=== PATIENT | male | born 1945 | race Caucasian/White ===

== ENCOUNTER 2018-10-09 20:48 | Inpatient (IN) | payer MEDICARE ==
[~2018-10-09] VITALS: Ht 182.9 cm; Wt 81.2 kg
[2018-10-09 20:58] VITALS: BP 151/98
--- NOTE | 2018-10-09 20:58 | NUR ---
Patient BIBA BLS, transferred to bed 8. RN evaluating patient at bedside.
--- NOTE | 2018-10-09 21:01 | NUR ---
PT AMBULATED TO BED #8
--- NOTE | 2018-10-09 21:05 | NUR ---
73 YO MALE BIBA WITH C/O MID UPPER BACK PAIN X1 DAY. PT STATES IT IS SHARP IN NATURE. PT DENIES CP/SOB @ THIS TIME. DENIES FEVER CHILLS. DENIES N/V/D. PT AAOX4, SITTING UP IN GURNEY. LUNGS CLEAR EVEN UNLABORED @ THIS TIME. IRREGULAR HEART RATE. ABD SOFT NON DISTENDED. SKIN WARM DRY INTACT. ER MD TO SEE PT. MEDICAL HX: 2 -2017. DM 1, A FIB, HTN, CHF ALLERGIES TO NSAIDS
[2018-10-09] MEDS ORDERED: MORPHINE SULFATE 4 MG/ML SYR IVP ONE ×2 (21:40→22:55)
[2018-10-09] MEDS ORDERED: NACL 0.9% 500 ML IV ONE (21:45)
[2018-10-09 22:01] LABS: BASOPHILS # (AUTO) 0.1 K/uL (0.00-0.22); BASOPHILS % (AUTO) 1.7 % (0.0-2.0); EOSINOPHILS # (AUTO) 0.5 K/uL (0-0.4); EOSINOPHILS % (AUTO) 11.5 % (0.0-4.0); HEMATOCRIT 40.5 % (36-52); HEMOGLOBIN 13.4 g/dL (12.0-18.0); LYMPHOCYTES # (AUTO) 1.1 K/uL (2.0-11.5); MEAN CORPUSCULAR HEMOGLOBIN 29 pg (27-31); MEAN CORPUSCULAR HGB CONC 33 g/dL (33-37); MEAN CORPUSCULAR VOLUME 87.9 fL (80-94); MONOCYTES # (AUTO) 0.5 K/uL (0.8-1.0); NEUTROPHILS % (AUTO) 47.8 % (42.2-75.2); PLATELET COUNT (AUTO) 206 K/uL (140-450); RED CELL DISTRIBUTION WIDTH 15.4 % (11.6-13.7); WHITE BLOOD COUNT (AUTO) 4.2 K/uL (4.8-10.8)
[2018-10-09 23:03] LABS: ANION GAP 13.6 (8-16); CARBON DIOXIDE 25.3 mmol/L (21-32); CHLORIDE 102 mmol/L (98-107); CREATININE 2.1 mg/dL (0.7-1.3); GLUCOSE 256 mg/dL (74-106); POTASSIUM 3.9 mmol/L (3.5-5.1); SODIUM SERUM 137 mmol/L (136-145); UREA NITROGEN, BLOOD 37 mg/dL (7-18)
[2018-10-09] MEDS ORDERED: MORPHINE SULFATE 2 MG/ML SYR ONE (23:08)
[2018-10-09 23:11] LABS: ASPARTATE AMINOTRANSFERASE 18 U/L (15-37); TOTAL BILIRUBIN 0.4 mg/dL (0.0-1.0)
--- NOTE | 2018-10-09 23:27 | NUR ---
SPOKE WITH [facility] WITH [facility] FOR VQ SCAN; STATED MEDS TAKE X3 HOURS TO GET TO [facility]. UPDATED DR SULLIVAN. PT TO BE ADMITTED IN HOSPITAL. VERBALIZED UNDERSTANDING.
--- NOTE | 2018-10-10 | NUR ---
PT DENIES CP/SOB @ THIS TIME. VSS. WILL CONTINUE TO OBSERVE.
[2018-10-10] MEDS ORDERED: ACETAMINOPHEN 325 MG TAB PO PRN (00:10)
[2018-10-10] MEDS ORDERED: HYDROcodone/APAP 7.5/325 MG 1 TAB PO PRN (00:10)
[2018-10-10] MEDS ORDERED: NACL 0.9% 1,000 ML IV SCH (00:10)
[2018-10-10] MEDS ORDERED: DOCUSATE SODIUM 100 MG GELCAP PO PRN (00:10)
[2018-10-10] MEDS ORDERED: ONDANSETRON 4 MG/2 ML VIAL IM/IVP PRN (00:10)
[2018-10-10] MEDS ORDERED: MORPHINE SULFATE 2 MG/ML SYR IVP PRN (00:10)
[2018-10-10 00:35] LABS: PROTHROMBIN TIME 10.7 secs (10.8-13.4)
[2018-10-10 00:46] LABS: MAGNESIUM 1.8 mg/dL (1.8-2.4)
[2018-10-10 00:47] LABS: THYROID STIMULATING HORMONE 4.16 uIU/mL (0.34-3.74)
[2018-10-10] MEDS ORDERED: SLIDE SUBQ (00:54)
[2018-10-10] MEDS ORDERED: FURO-572 PO (00:54)
[2018-10-10] MEDS ORDERED: LEVO0.0211 PO (00:54)
[2018-10-10] MEDS ORDERED: ASPI-1718 PO (00:54)
[2018-10-10] MEDS ORDERED: LISI-420 PO (00:54)
[2018-10-10] MEDS ORDERED: ATOR10TA51 PO (00:54)
[2018-10-10] MEDS ORDERED: APIX5TAB PO (00:54)
[2018-10-10] MEDS ORDERED: LANTUS SC (00:54)
[2018-10-10] MEDS ORDERED: DEXTROSE 50% 50 ML SYR IVP PRN (01:00)
[2018-10-10] MEDS ORDERED: INSULIN LISPRO SLIDING SCALE 100 UNITS/ML VIAL SUBQ PRN (01:00)
--- NOTE | 2018-10-10 01:30 | NUR ---
Patient will be admitted to care of DR. BERGMAN. Admited to TELEMETRY. Will go to [id number]. Belongings list completed. Report to JEFF BRAY.
--- NOTE | 2018-10-10 01:33 | NUR ---
PATIENT TRANSFERRED INTO UNIT VIA WHEELCHAIR, ASSISTED BY TWO STOKER MECHANIC'S. PATIENT ABLE TO TRANSFER FROM WHEELCHAIR TO BED WITHOUT ASSISTANCE. PATIENT A/Ox4, ABLE TO MAKE NEEDS KNOWN, AMBULATORY AND KYRGYZ SPEAKING. INTRODUCED SELF, ORIENTED PATIENT TO ROOM AND HOSPITAL ENVIRONMENT, UPDATED BOARD. CHIEF COMPLAINT OF BACK PAIN. DX - CHEST PAIN, RULE OUT PULMONARY EDEMA. HX OF WI x 2, HTN, DM. VITAL SIGNS UPON ADMISSION ARE FOLLOWS: BP 155/92, RR 15, HR 78, TEMP 97.0 DEGREES F., O2Sat 98% ON ROOM AIR. SKIN INTACT. BED IN THE LOWEST POSITION, CALL LIGHT WITHIN REACH. INITIAL ASSESSMENT DONE. WILL CONTINUE TO MONITOR.
[2018-10-10 01:39] LABS: APPEARANCE,URINE CLEAR (CLEAR); BILIRUBIN,URINE NEGATIVE (NEGATIVE); BLOOD, URINE TRACE-I (NEGATIVE); COLOR,URINE YELLOW (YELLOW); LEUKOCYTE ESTERASE ,URINE NEGATIVE (NEGATIVE); NITRITE, URINE NEGATIVE (NEGATIVE); UGLUCOSE 2+ (NEGATIVE)
[2018-10-10 01:48] LABS: BARBITURATE, URINE NEG. ng/ml (NEG <=200); BENZODIAZEPINE, URINE NEG. ng/mL (NEG <=200); CANNABINOID, URINE NEG. ng/mL (NEG <=50); COCAINE, URINE NEG. ng/mL (NEG <=300); OPIATE, URINE NEG. ng/mL (NEG <=2000); PHENCYCLIDINE SCREEN,URINE NEG. ng/mL (NEG <=25)
[2018-10-10 01:51] LABS: RBC,URINE 0-5 /HPF (0-5); WBC,URINE NONE SEEN /HPF (0-5)
--- NOTE | 2018-10-10 02:50 | NUR ---
MADE DR. PAULSON AWARE OF TROPONIN LEVEL 0.481 DURING ER STAY; NO NEW ORDERS.
[2018-10-10 04:00] VITALS: BP 158/82
--- NOTE | 2018-10-10 04:03 | NUR ---
VITALS TAKEN, NO SOB OR DISTRESS NOTED.
--- NOTE | 2018-10-10 05:30 | NUR ---
DUE MEDS GIVEN, PATIENT IS AWAKE, NO DISTRESS NOTED.
[2018-10-10] MEDS ORDERED: LEVOTHYROXINE 0.025 MG TAB PO SCH (06:30)
[2018-10-10] MEDS: BLOOD GLUCOSE MONITORING 1 DEV DEV FS SCH ×2 (06:39→11:30)
[2018-10-10 07:11] LABS: BASOPHILS # (AUTO) 0.1 K/uL (0.00-0.22); BASOPHILS % (AUTO) 1.5 % (0.0-2.0); EOSINOPHILS # (AUTO) 0.4 K/uL (0-0.4); EOSINOPHILS % (AUTO) 12.1 % (0.0-4.0); HEMATOCRIT 41.5 % (36-52); HEMOGLOBIN 13.7 g/dL (12.0-18.0); LYMPHOCYTES # (AUTO) 1.2 K/uL (2.0-11.5); LYMPHOCYTES % (AUTO) 32.8 % (20.5-51.1); MEAN CORPUSCULAR HEMOGLOBIN 29 pg (27-31); MEAN CORPUSCULAR HGB CONC 33 g/dL (33-37); MEAN CORPUSCULAR VOLUME 88.5 fL (80-94); MONOCYTES # (AUTO) 0.4 K/uL (0.8-1.0); MONOCYTES % (AUTO) 10.5 % (1.7-9.3); NEUTROPHILS # (AUTO) 1.5 K/uL (1.8-7.7); NEUTROPHILS % (AUTO) 43.1 % (42.2-75.2); PLATELET COUNT (AUTO) 194 K/uL (140-450); RED BLOOD CELL COUNT(AUTO) 4.69 MIL/uL (4.20-6.10); RED CELL DISTRIBUTION WIDTH 15.8 % (11.6-13.7); WHITE BLOOD COUNT (AUTO) 3.6 K/uL (4.8-10.8)
--- NOTE | 2018-10-10 07:15 | NUR ---
ENDORSED PATIENT TO AM SHIFT RN; PATIENT IN STABLE CONDITION.
--- NOTE | 2018-10-10 07:35 | NUR ---
RECEIVED REPORT FROM CABIN SUPERVISOR NURSE. PATIENT LYING DOWN IN BED SLEEPING, AROUSABLE BY VOICE. NO DISTRESS NOTED. DENIES ANY PAIN. AAOX4, CALM, COOPERATIVE, SKIN COLOR APPROPRIATE TO ETHNICITY, WARM TO TOUCH. SKIN INTACT. RESPIRATIONS EVEN, UNLABORED, ON ROOM AIR. LUNGS CTA ON ALL LOBES. IV SITE INTACT, PATENT, AND INFUSING IVF PER MD ORDERS. REVIEWED PLAN OF CARE WITH PATIENT. PATIENT VERBALIZED UNDERSTANDING. SAFETY MEASURES IN PLACE, CALL LIGHT WITHIN REACH. WILL CONTINUE TO MONITOR.
[2018-10-10 07:40] LABS: ANION GAP 9.6 (8-16); CARBON DIOXIDE 30.1 mmol/L (21-32); CHLORIDE 108 mmol/L (98-107); CREATININE 1.9 mg/dL (0.7-1.3); GLUCOSE 149 mg/dL (74-106); POTASSIUM 4.7 mmol/L (3.5-5.1); SODIUM SERUM 143 mmol/L (136-145); UREA NITROGEN, BLOOD 30 mg/dL (7-18)
[2018-10-10 07:48] LABS: MAGNESIUM 1.9 mg/dL (1.8-2.4); PHOSPHORUS 3.3 mg/dL (2.5-4.9)
--- NOTE | 2018-10-10 07:55 | NUR ---
PATIENT HAS BEEN SCREENED AND CATEGORIZED MODERATE NUTRITION RISK. PATIENT WILL BE SEEN WITHIN 3-5 DAYS OF ADMISSION. 10/12/18-10/14/[address]
[2018-10-10 08:00] VITALS: BP 170/86
[2018-10-10] MEDS ORDERED: APIXABAN 2.5 MG TAB PO SCH (09:00)
[2018-10-10] MEDS ORDERED: ASPIRIN 81 MG TAB.CHEW PO SCH (09:00)
[2018-10-10] MEDS ORDERED: FUROSEMIDE 20 MG TAB PO SCH (09:00)
[2018-10-10] MEDS ORDERED: LISINOPRIL 20 MG TAB PO SCH (09:00)
[2018-10-10] MEDS ORDERED: ATORVASTATIN 20 MG TAB PO SCH (09:00)
--- NOTE | 2018-10-10 09:16 | NUR ---
PATIENT SITTING IN BED ON HIS PHONE. NO DISTRESS NOTED. DENIES ANY PAIN. SCHEDULED MEDICATIONS DUE GIVEN. WILL CONTINUE TO MONITOR.
[2018-10-10 12:00] VITALS: BP 160/91
[2018-10-10] MEDS ORDERED: METOPROLOL SUCCINATE 50 MG TABER PO SCH (12:30)
--- NOTE | 2018-10-10 12:46 | NUR ---
PATIENT SITTING IN BED WITH LUNCH TRAY IN FRONT. NO DISTRESS NOTED. DENIES ANY PAIN. SCHEDULED MEDICATIONS DUE GIVEN. WILL CONTINUE TO MONITOR.
--- NOTE | 2018-10-10 13:23 | NUR ---
DISCHARGE INSTRUCTIONS PROVIDED TO PATIENT IN PREFERRED LANGUAGE OF PANAMANIAN. INSTRUCTIONS ON FOLLOW-UP VISIT WITH PCP AND COMPUTER SYSTEMS TECHNICIAN, DIET REGIMEN, MEDICATION REGIMEN AND SIDE EFFECTS, AND MANAGEMENT OF CHEST PAIN PROVIDED TO PATIENT. ANSWERED ALL OF PATIENT'S QUESTIONS REGARDING DISCHARGE. PATIENT VERBALIZED COMPLETE UNDERSTANDING. AWAITING FOR PATIENT'S SON TO TAKE PATIENT HOME. WILL CONTINUE TO MONITOR.
--- NOTE | 2018-10-10 13:30 | NUR ---
SON WAITING IN FRONT LOBBY FOR PATIENT. IV SITE REMOVED WITH MINIMAL BLOOD AND LUMEN COMPLETELY INTACT. ID BANDS REMOVED. ESCORTED PATIENT DOWN TO LOBBY VIA STEADY AMBULATION. PATIENT DISCHARGED AT THIS TIME IN STABLE CONDITION.
[2018-10-10] MEDS ORDERED: INSULIN LANTUS 100 UNITS/ML 10 ML VIAL SUBQ SCH (21:00)
[2018-10-11] MEDS ORDERED: METOPROLOL SUCCINATE 50 MG TABER PO SCH (09:00)
== END 2018-10-10 13:30 | disposition home or self-care (01) | DRG 280 ==
LOC: MED 20:48 → MTU 10-10 00:10
PROVIDERS: ADMIT Family Medicine; ATTEND Family Medicine
DX: I21.A1 Myocardial infarction type 2 (principal); I50.43 Acute on chronic combined systolic (congestive) and diastolic (congestive) heart failure; N17.0 Acute kidney failure with tubular necrosis; E44.0 Moderate protein-calorie malnutrition; I25.10 Atherosclerotic heart disease of native coronary artery without angina pectoris; E03.9 Hypothyroidism, unspecified; E11.65 Type 2 diabetes mellitus with hyperglycemia; I48.91 Unspecified atrial fibrillation; Z88.6 Allergy status to analgesic agent; Z95.5 Presence of coronary angioplasty implant and graft; Z82.49 Family history of ischemic heart disease and other diseases of the circulatory system; Z68.24 Body mass index [BMI] 24.0-24.9, adult; Z79.84 Long term (current) use of oral hypoglycemic drugs
CPT/HCPCS: 36415; 71045; 78582; 80048; 80053; 80305; 81001; 82150; 82948; 83036; 83690; 83735; 83880; 84100; 84443; 84484; 85025; 85379; 85610; 85730; 87081; 93005; 96374; 96376; 99285; J1815; J2270; J7030

== ENCOUNTER 2019-07-11 13:22 | Inpatient (IN) | payer MEDICARE ==
[~2019-07-11] VITALS: Ht 172.7 cm; Wt 63.5 kg
[~2019-07-11 13:22] MED LIST: APIX5TAB PO; ASPI-1718 PO; ATOR10TA51 PO; FURO-572 PO; LANTUS SC; LEVO0.0211 PO; LISI-420 PO; SLIDE SUBQ
--- NOTE | 2019-07-11 13:22 | NUR ---
Patient BIBA ALS, transferred to bed 10. RN evaluating patient at bedside.
[2019-07-11 13:24] VITALS: BP 145/71
--- NOTE | 2019-07-11 13:35 | NUR ---
74 YEAR OLD MALE BIBA FOR LOW BLOOD SUGAR. PER EMS PATIENT BLOOD SUGAR WAS 33 BEFORE GIVING D5W PRIOR TO ARRIVAL. PATIENT AOX4, GCS15, BREATHING EVEN AND UNLABORED, SKIN WARM AND DRY. SKIN LACERATION ON RIGHT HAND PRESENT, COVERED WITH BANDAGE. BLOOD SUGAR 128. HX - CVA, HTN, DM2, CHF
--- NOTE | 2019-07-11 13:52 | NUR ---
wafer fabrication technician at bedside.
--- NOTE | 2019-07-11 14:15 | NUR ---
PT UNABLE TO COLLECT URINE SAMPLE AT THIS TIME, WILL ATTEMPT AGAIN LATER
--- NOTE | 2019-07-11 14:22 | NUR ---
PATIENT ALERT AND ORIENTED, BREATHING EVEN AND UNLABORED. SKIN WARM AND DRY. WILL CONTINUE TO MONITOR.
--- NOTE | 2019-07-11 14:31 | NUR ---
PT IS UNSURE OF DOSAGE FOR WARFARIN AND CARVEDILOL
[2019-07-11 14:33] LABS: BASOPHILS % (AUTO) 0.4 % (0.0-2.0); EOSINOPHILS # (AUTO) 0.1 K/uL (0-0.4); EOSINOPHILS % (AUTO) 1.3 % (0.0-4.0); HEMATOCRIT 38.1 % (36-52); HEMOGLOBIN 12.3 g/dL (12.0-18.0); LYMPHOCYTES # (AUTO) 0.7 K/uL (2.0-11.5); LYMPHOCYTES % (AUTO) 8.3 % (20.5-51.1); MEAN CORPUSCULAR HEMOGLOBIN 29 pg (27-31); MEAN CORPUSCULAR HGB CONC 32 g/dL (33-37); MEAN CORPUSCULAR VOLUME 88.2 fL (80-94); MONOCYTES # (AUTO) 0.5 K/uL (0.8-1.0); MONOCYTES % (AUTO) 6.8 % (1.7-9.3); NEUTROPHILS # (AUTO) 6.5 K/uL (1.8-7.7); NEUTROPHILS % (AUTO) 83.2 % (42.2-75.2); PLATELET COUNT (AUTO) 371 K/uL (140-450); RED BLOOD CELL COUNT(AUTO) 4.32 MIL/uL (4.20-6.10); RED CELL DISTRIBUTION WIDTH 15.6 % (11.6-13.7); WHITE BLOOD COUNT (AUTO) 7.9 K/uL (4.8-10.8)
[2019-07-11 14:42] LABS: ANION GAP 16.1 (8-16); CARBON DIOXIDE 24.4 mmol/L (21-32); CHLORIDE 100 mmol/L (98-107); CREATININE 2.7 mg/dL (0.7-1.3); GLUCOSE 129 mg/dL (74-106); POTASSIUM 3.5 mmol/L (3.5-5.1); SODIUM SERUM 137 mmol/L (136-145); UREA NITROGEN, BLOOD 44 mg/dL (7-18)
[2019-07-11 14:48] LABS: ALBUMIN 3.2 g/dL (3.4-5.0); AMYLASE 28 U/L (25-115); ASPARTATE AMINOTRANSFERASE 17 U/L (15-37); LIPASE 119 U/L (73-393); MAGNESIUM 2.3 mg/dL (1.8-2.4); TOTAL BILIRUBIN 0.7 mg/dL (0.0-1.0)
--- NOTE | 2019-07-11 15:30 | NUR ---
PATIENT UNABLE TO URINATE, WILL CONTINUE TO MONITOR.
--- NOTE | 2019-07-11 16:00 | NUR ---
PATIENT UNABLE TO URINATE, DR AYON NOTIFIED
--- NOTE | 2019-07-11 16:13 | NUR ---
PATIENT RESTING WITH EYES CLOSED, BREATHING EVEN AND NONLABORED
[2019-07-11] MEDS ORDERED: ALBUTEROL 0.083% 2.5 MG/3 ML NEBU INH PRN (16:40)
[2019-07-11] MEDS ORDERED: ACETAMINOPHEN 325 MG TAB PO PRN (16:40)
[2019-07-11] MEDS ORDERED: DEXTROSE 50% 50 ML SYR IVP PRN (16:40)
[2019-07-11] MEDS ORDERED: ONDANSETRON 4 MG/2 ML VIAL IVP PRN (16:40)
[2019-07-11] MEDS ORDERED: HYDROcodone/APAP 5/325 MG 1 TAB TAB PO PRN (16:40)
--- NOTE | 2019-07-11 17:30 | NUR ---
PATIENT ARRIVED ONTO THE UNIT IN STABLE CONDITION. VITAL SIGNS: 139/77, 95% O2, 18 RR, 98.1 (TYMP), 0 PAIN, [address] PATIENT IS WITH DR. JONES, ORIENTED TO THE UNIT, MRSA NARES DONE. IV LINE CHECKED AND SALINE LOCKED. BODY CHECK COMPLETED, MULTIPLE CLOSED WOUNDS RESEMBLING BRUISES. ADMISSION DOCUMENTATION TO BE COMPLETED. WILL CONTINUE TO MONITOR.
--- NOTE | 2019-07-11 17:30 | NUR ---
Patient will be admitted to care of DR JONES. Admited to TELE. Will go to room 124B. Belongings list completed. Report to ARSEN BRAY.
--- NOTE | 2019-07-11 19:07 | NUR ---
REPORT RECEIVED FROM AM NURSE AT BEDSIDE. PT IN STABLE CONDITION. AAOX4. INTRODUCED SELF TO PT. BOARD UPDATED. NO COMPLAINTS OF PAIN. NO SOB. AFEBRILE. PT IS AMBULATORY WITH A WALKER. IV SITE R AC 20G RUNNING D5NS@75ML/HR PATENT AND INTACT. SKIN WARM, DRY, AND NOT INTACT DUE TO SKIN TEARS ON THE RIGHT HAND. BED LOCKED IN LOW POSITION. CALL YEAGER WITHIN REACH. SAFETY PRECAUTION IN PLACE. ALL NEEDS MET AT THIS TIME.
[2019-07-11 20:00] VITALS: BP 128/68
[2019-07-11] MEDS ORDERED: FUROSEMIDE 20 MG TAB PO SCH (20:30)
--- NOTE | 2019-07-11 20:30 | NUR ---
CRITICAL VALUE CALLED IN TROPONIN 0.148. TRENDING DOWN. NOT NOTIFIED.
[2019-07-11] MEDS: APIXABAN 2.5 MG TAB PO SCH (21:15)
--- NOTE | 2019-07-11 21:15 | NUR ---
LASIX AND ELIQUIS GIVEN PO. PT TOLERATED WELL.
[2019-07-11] MEDS: DEXT 5% /NACL 0.9% 1,000 ML IV SCH (21:30)
[2019-07-11] MEDS: BLOOD GLUCOSE MONITORING 1 DEV DEV FS SCH (21:56)
[2019-07-11] MEDS: INSULIN LISPRO SLIDING SCALE 100 UNITS/ML VIAL SUBQ PRN (21:59)
[2019-07-11] MEDS: MORPHINE SULFATE 4 MG/ML SYR IVP PRN (21:59)
--- NOTE | 2019-07-11 21:59 | NUR ---
MORPHINE GIVEN FOR 8/10 SACRAL PAIN. BS 299. 6 UNITS OF HUMALOG GIVEN. PT TOLERATED WELL.
--- NOTE | 2019-07-11 23:45 | NUR ---
PT SLEEPING COMFORTABLY BUT AROUSABLE. NO S/S OF DISTRESS NOTED. VS STABLE. WILL CONTINUE TO MONITOR.
[2019-07-12] VITALS: BP 116/76
--- NOTE | 2019-07-12 01:05 | NUR ---
CRITICAL VALUE CALLED IN BY LAB TROPONIN 0.125. TRENDING DOWN. NOT NOTIFIED.
[2019-07-12] MEDS: MORPHINE SULFATE 4 MG/ML SYR IVP PRN ×2 (01:55→05:42)
--- NOTE | 2019-07-12 01:55 | NUR ---
DILAUDID GIVEN FOR 02/27 TAILBONE PAIN. PT TOLERATED WELL. Addendum: 07/12/19 at 0632 by Melo Peterson RN MORPHINE WAS GIVEN. NOT DILAUDID.
[2019-07-12 04:00] VITALS: BP 121/67
--- NOTE | 2019-07-12 04:15 | NUR ---
PT SLEEPING COMFORTABLY BUT AROUSABLE. NO S/S OF DISTRESS NOTED. NO COMPLAINTS OF PAIN. NO SOB. AFEBRILE. WILL CONTINUE TO MONITOR.
[2019-07-12] MEDS: BLOOD GLUCOSE MONITORING 1 DEV DEV FS SCH ×4 (05:22→20:33)
[2019-07-12] MEDS: INSULIN LISPRO SLIDING SCALE 100 UNITS/ML VIAL SUBQ PRN ×4 (05:36→20:40)
--- NOTE | 2019-07-12 05:36 | NUR ---
BS 233. 4 UNITS OF HUMALOG GIVEN. PT TOLERATED WELL.
--- NOTE | 2019-07-12 05:42 | NUR ---
MORPHINE GIVEN FOR 8/10 TAILBONE PAIN. PT TOLERATED WELL.
[2019-07-12 06:31] LABS: ANION GAP 15.9 (8-16); CARBON DIOXIDE 23.1 mmol/L (21-32); CHLORIDE 102 mmol/L (98-107); CREATININE 2.5 mg/dL (0.7-1.3); GLUCOSE 242 mg/dL (74-106); SODIUM SERUM 137 mmol/L (136-145); UREA NITROGEN, BLOOD 40 mg/dL (7-18)
[2019-07-12 06:42] LABS: PHOSPHORUS 3.5 mg/dL (2.5-4.9)
[2019-07-12 06:56] LABS: BASOPHILS % (AUTO) 0.5 % (0.0-2.0); EOSINOPHILS # (AUTO) 0.1 K/uL (0-0.4); EOSINOPHILS % (AUTO) 0.9 % (0.0-4.0); HEMATOCRIT 32.9 % (36-52); HEMOGLOBIN 10.8 g/dL (12.0-18.0); LYMPHOCYTES % (AUTO) 11.4 % (20.5-51.1); MEAN CORPUSCULAR HEMOGLOBIN 29 pg (27-31); MEAN CORPUSCULAR HGB CONC 33 g/dL (33-37); MEAN CORPUSCULAR VOLUME 87.7 fL (80-94); MONOCYTES # (AUTO) 0.9 K/uL (0.8-1.0); MONOCYTES % (AUTO) 10.6 % (1.7-9.3); NEUTROPHILS # (AUTO) 6.6 K/uL (1.8-7.7); NEUTROPHILS % (AUTO) 76.6 % (42.2-75.2); PLATELET COUNT (AUTO) 325 K/uL (140-450); RED BLOOD CELL COUNT(AUTO) 3.75 MIL/uL (4.20-6.10); RED CELL DISTRIBUTION WIDTH 15.3 % (11.6-13.7); WHITE BLOOD COUNT (AUTO) 8.6 K/uL (4.8-10.8)
--- NOTE | 2019-07-12 06:58 | NUR ---
PT SLEEPING COMFORTABLY BUT AROUSABLE. PT IN STABLE CONDITION.
[2019-07-12 07:00] VITALS: BP 141/76
--- NOTE | 2019-07-12 07:20 | NUR ---
CRITICAL LAB VALUE CALLED IN FOR TROPONIN OF 0.136. WILL ENDORSE TO MORNING NURSE TO NOTIFY MD.
--- NOTE | 2019-07-12 07:22 | NUR ---
WAS GIVEN BEDSIDE REPORT FROM DATA ENTRY PROCESSOR NURSE. PATIENT WAS RESTING IN BED. PATIENT IS AAOX4. BREATHING IS EVEN AND UNLABORED ON RA. NO SIGNS OF DISTRESS NOTED. IV ON RIGHT AC 18G INFUSING D5NS AT 75 ML/HR. IT IS CLEAN AND INTACT. SKIN IS WARM TO TOUCH, WITH A SKIN TEAR ON HIS RIGHT WRIST, OPEN TO AIR. SKIN IS APPROPRIATE COLOR FOR ETHNICITY. PATIENT IS CONTINENT AND ABLE TO USE URINAL AND URINAL IS BY BEDSIDE. SAFETY MEASURES ASSESSED, BED IS IN LOW POSITION, CALL LIGHT IS WITHIN REACH. PT EDUCATED TO USE CALL LIGHT FOR ASSISTANCE AND VERBALIZED UNDERSTANDING.
--- NOTE | 2019-07-12 08:34 | NUR ---
PATIENT HAS BEEN SCREENED AND CATEGORIZED MODERATE NUTRITION RISK. PATIENT WILL BE SEEN WITHIN 3-5 DAYS OF ADMISSION. 07/14/19 07/16/[address]
--- NOTE | 2019-07-12 09:30 | NUR ---
PT'S SON IS BY BEDSIDE. BROUGHT IN HOME MED ILIN AND SEND TO PHARMACY. PT IS TALKING TO SON BY BEDSIDE. NO SIGNS OF DISTRESS NOTED. TELE MONITOR ATTACHED. BED SAFETY MEASURES IN PLACE.
[2019-07-12] MEDS: LEVOTHYROXINE 0.025 MG TAB PO SCH (09:58)
[2019-07-12] MEDS: FUROSEMIDE 20 MG TAB PO SCH (09:58)
[2019-07-12] MEDS: APIXABAN 2.5 MG TAB PO SCH (09:59)
[2019-07-12] MEDS: LISINOPRIL 20 MG TAB PO SCH (10:02)
[2019-07-12] MEDS: ATORVASTATIN 20 MG TAB PO SCH (10:02)
--- NOTE | 2019-07-12 10:02 | NUR ---
BP MED GIVEN TO PT. BP WAS CHECKED BEFORE ADMINISTRATION, IT WAS 118/58 WITH A PULSE OF 98. MEDICATIONS WERE ADMINISTERED ORDERED PER MD. MEDICATION EDUCATION GIVEN TO PT AND PT VERBALIZED UNDERSTANDING. PT WAS RESTING IN BED, DENIES PAIN AT THIS TIME WITH NO SIGNS OF DISTRESS NOTED. PT BREATHING IS EVEN AND UNLABORED. SAFETY MEASURES CHECKED, BED IN LOW POSITION AND CALL LIGHT WITHIN REACH. PT INSTRUCTED TO USE CALL LIGHT FOR ASSISTANCE. TELE MONITOR CONNECTED.
[2019-07-12] MEDS: BRILINTA 90 MG PO SCH ×3 (10:21→20:36)
--- NOTE | 2019-07-12 10:21 | NUR ---
ADMINISTERED PT'S HOME MED, UNABLE TO SCAN, AND MANUAL ENTER, MED ED PROVIDED AND PT VERBALIZED UNDERSTANDING. PT TOLERATED MED WELL. SON IS BY BEDSIDE. DENIED PAIN, SOB, NAUSEA AND VOMITING. NO SIGNS OF DISTRESS NOTED. TELE MONITOR ATTACHED. BED IN LOW POSITION AND CALL LIGHT WITHIN REACH.
--- NOTE | 2019-07-12 11:00 | NUR ---
DC PLANNIN YRS OLD WAS ADMITTED FROM HOME WITH A DX OF HYPOGLYCEMIA BS 33 AND NSTEMI. PT HAS A HX OF DM , CAD CARDIAC STENT PLACEMENT 2 WEEKS AGO , CVA WITH RESIDUAL RT SIDED DEFICITS. ADMINISTERED IVF, DEXTROSE INFUSION AND BLOOD SUGAR IMPROVED. CARDIOLOGY CONSULT FOR NSTEMI AND STARTED HEPARIN DRIP ,NEPHROLOGY CONSULT FOR RENAL FUNCTION AND CONTINUE SUPPORTIVE CARE AND PT EVALUATION . CM TO FOLLOW Addendum: 07/13/19 at 1351 by Iliana Glover CM DC PLANNING: PT IS STILL ON HEPARIN DRIP, WAITING FOR CARDIOLOGY CONSULT ,PT EVALUATION DONE DC PLAN TO GO HOME WITH HOME HEALTH FOR PT ,FAXED THE REQUEST TO THE [facility] [phone] CM TO FOLLOW
--- NOTE | 2019-07-12 11:17 | NUR ---
PT AWAKE AND TALKING TO SON BY BEDSIDE. PT REMOVED THE CONDOM CATHETHER AND USED THE URANAL INSTEAD. PT STATED "I DONT WANT IT ON ME, IT'S NOT COMFORTABLE. I CAN USE THIS." HE IS POINTING TO THE URANAL. NO SIGNS OF DISTRESS NOTED. TELE MONITOR ATTACHED. SAFETY MEASURES IN PLACE.
[2019-07-12] MEDS: DEXT 5% /NACL 0.9% 1,000 ML IV SCH (11:32)
--- NOTE | 2019-07-12 11:32 | NUR ---
HUNG A NEW BAG OF IVF AND CONTINUE INFUSING PER MD ORDER. PT AWAKE AND TALKING TO SON BY BEDSIDE. NO SIGNS OF DISTRESS NOTED. SAFETY MEASURES IN PLACE.
[2019-07-12 12:00] VITALS: BP 108/57
--- NOTE | 2019-07-12 12:15 | NUR ---
DR JENKINS IS ASSESSING AND TALKING TO PT AT BEDSIDE. NO SIGNS OF DISTRESS NOTED. TELE MONITOR ATTACHED. SAFETY MEASURES IN PLACE.
--- NOTE | 2019-07-12 12:39 | NUR ---
PT RECEIVED HIS LUNCH TRAY. ADMINISTERED 6 UNITS HUMALOG FOR BLOOD GLUCOSE 294, MED ED PROVIDED TO PT AND PT SAID OK. PT IS STARTING TO EAT HIS LUNCH AT THIS TIME. DENIED PAIN, SOB, DIZZINESS. NO SIGNS OF DISTRESS NOTED. TELE MONITOR ATTACHED. BED IN LOW POSITION AND CALL WITHIN REACH. FALL RISK PROTOCOL IN PLACE AND BED ALARM ACTIVATED. INSTRUCTED PT TO USE THE CALL LIGHT FOR ANY ASSISTANCE AND PT WAS AWARE.
--- NOTE | 2019-07-12 13:38 | NUR ---
PT IS IN ECHOCARDIOGRAM AT THIS TIME. NO SIGNS OF DISTRESS NOTED. TELE MONITOR ATTACHED. BED IN LOW POSITION AND CALL LIGHT WITHIN REACH. FALL RISK PROTOCOL IN PLACE AND BED ALARM ACTIVATED. INSTRUCTED PT TO USE THE CALL LIGHT FOR ANY ASSISTANCE AND PT WAS AWARE.
--- NOTE | 2019-07-12 15:50 | NUR ---
DR JONES IS TALKING AND ASSESSING PT AT BEDSIDE. NO SIGNS OF DISTRESS NOTED. TELE MONITOR ATTACHED. SAFETY MEASURES IN PLACE.
[2019-07-12] MEDS ORDERED: HEPARIN PER PHARMACY MC PRN (15:55)
[2019-07-12 16:00] VITALS: BP 122/69
[2019-07-12] MEDS ORDERED: CLOPIDOGREL 75 MG TAB PO SCH (16:00)
--- NOTE | 2019-07-12 17:45 | NUR ---
REMOTE SENSING TECHNICIAN IS CHANGING AND CLEANING PT AT THIS TIME. PT TOLERATED WELL. NO SIGNS OF DISTRESS NOTED. TELE MONITOR ATTACHED. SAFETY MEASURES IN PLACE.
--- NOTE | 2019-07-12 18:25 | NUR ---
PT RECEIVE HIS DINNER TRAY, ADMINISTERED 6 UNITS HUMALOG FOR BLOOD GLUCOSE 274, MED ED PROVIDED AND PT SAID OK. PT IS EATING DINNER AT THIS TIME. NO SIGNS OF DISTRESS NOTED. SAFETY MEASURES IN PLACE. TELE MONITOR ATTACHED.
--- NOTE | 2019-07-12 19:35 | NUR ---
ENDORSED PT AT BEDSIDE TO CLASS A REGIONAL DRIVERS NURSE FOR CONTINUITY OF CARE, PT IS AWAKE AND RESTING ON BED AT THIS TIME. NO SIGNS OF DISTRESS NOTED. INFORMED CLASS A REGIONAL DRIVERS NURSE THAT HEPARIN MUST START AFTER 2100 AND NOTHING EARLIER THAT THIS TIME TO PREVENT RISK OF BLEEDING. PT IS IN STABLE CONDITION. SAFETY MEASURES IN PLACE.
--- NOTE | 2019-07-12 19:36 | NUR ---
RECEIVED BEDSIDE REPORT FROM AM SHIFT NURSE FOR CONTINUITY OF CARE, PT IS AWAKE, O X 4. PT ABLE TO GO BATHROOM STEADY GAIT. RESTING ON BED AT THIS TIME. NO SIGNS OF DISTRESS NOTED. AWARE THAT HEPARIN MUST START AFTER 2100 AND NOTHING EARLIER THAT THIS TIME TO PREVENT RISK OF BLEEDING. PT IS IN STABLE CONDITION. SAFETY MEASURES IN PLACE.
[2019-07-12 20:00] VITALS: BP 125/61
--- NOTE | 2019-07-12 20:07 | NUR ---
CALLED DR. VILLALOBOS, DIESEL LOCOMOTIVE FIRER FOR NIGHT TIME. MAG LEVEL REPORTED 1.5. SAID TO TAKE CARE OF IT TOMORROW AM. Addendum: 07/12/19 at 2008 by Lydia Ricks RN DELETE NOTE WRONG PATIENT
[2019-07-12] MEDS ORDERED: INSULIN LANTUS 100 UNITS/ML 10 ML VIAL SUBQ SCH (21:00)
[2019-07-12] MEDS ORDERED: COMMUNICATION ORDER MC SCH (21:00)
--- NOTE | 2019-07-12 21:00 | NUR ---
STARTED A LINE ON THE LEFT FOREARM G 24, PATENT. PATIENT TOLERATED PROCEDURE; W/ GOOD BLOOD FLOW WHEN FLUSHED. NO SIGNS OF BLEEDING NO SIGNS OF INFECTION ON SITE
--- NOTE | 2019-07-12 21:43 | NUR ---
BOLUS OF HEPARIN GIVEN INDICATED
--- NOTE | 2019-07-12 21:44 | NUR ---
HEPARIN STARTED INDICATED
[2019-07-12] MEDS: hePARIN / DEXT 5% PREMIX 250 ML IV SCH (21:45)
[2019-07-13] VITALS: BP 126/65
--- NOTE | 2019-07-13 00:15 | NUR ---
PT SAID AFTER VS TAKEN HE WANTS TO NOT TO BE DISTURBED BEC HE LAC SLEEP. WILL REDUCE NOISE IN THE ROOM FOR PT TO SLEEP
--- NOTE | 2019-07-13 01:41 | NUR ---
CHECKED ON PATIENT. PATIENT SLEEPING BUT EASILY AROUSABLE;NO BLEEDING. CHECKED ON DRIP MAINTAINING THE INITIAL DOSE. AWAITING PTT LEVEL LATER AT 0343 FOR THE NEXT HEPARIN PROTOCOL
[2019-07-13 04:01] VITALS: BP 131/78
--- NOTE | 2019-07-13 04:30 | NUR ---
STOPPED HEPARIN DRIP Addendum: 07/13/19 at 0507 by Lydia Ricks RN FOR 1 HOUR THEN RESUME DECREASE 200 U/HR TO PRESENT RATE
[2019-07-13] MEDS: hePARIN / DEXT 5% PREMIX 250 ML IV SCH ×2 (05:36→13:29)
--- NOTE | 2019-07-13 05:36 | NUR ---
ADJUSTED THE DOSE TO 600 UNITS/HR, NEXT PTT DRAW AT 1136 9 6 HRS AFTER THE ADJUSTED TIME
[2019-07-13] MEDS: BLOOD GLUCOSE MONITORING 1 DEV DEV FS SCH ×3 (05:44→16:30)
[2019-07-13 05:45] LABS: BASOPHILS % (AUTO) 0.5 % (0.0-2.0); EOSINOPHILS # (AUTO) 0.2 K/uL (0-0.4); EOSINOPHILS % (AUTO) 1.9 % (0.0-4.0); HEMATOCRIT 32.7 % (36-52); HEMOGLOBIN 10.8 g/dL (12.0-18.0); LYMPHOCYTES # (AUTO) 1.1 K/uL (2.0-11.5); LYMPHOCYTES % (AUTO) 11.3 % (20.5-51.1); MEAN CORPUSCULAR HEMOGLOBIN 29 pg (27-31); MEAN CORPUSCULAR HGB CONC 33 g/dL (33-37); MEAN CORPUSCULAR VOLUME 87.7 fL (80-94); MONOCYTES # (AUTO) 0.9 K/uL (0.8-1.0); MONOCYTES % (AUTO) 10.1 % (1.7-9.3); NEUTROPHILS # (AUTO) 7.1 K/uL (1.8-7.7); NEUTROPHILS % (AUTO) 76.2 % (42.2-75.2); PLATELET COUNT (AUTO) 340 K/uL (140-450); RED BLOOD CELL COUNT(AUTO) 3.72 MIL/uL (4.20-6.10); RED CELL DISTRIBUTION WIDTH 15.2 % (11.6-13.7); WHITE BLOOD COUNT (AUTO) 9.3 K/uL (4.8-10.8)
[2019-07-13 06:00] LABS: MAGNESIUM 1.8 mg/dL (1.8-2.4); PHOSPHORUS 2.9 mg/dL (2.5-4.9)
[2019-07-13 06:03] LABS: ALBUMIN 2.4 g/dL (3.4-5.0); ASPARTATE AMINOTRANSFERASE 13 U/L (15-37); CARBON DIOXIDE 23.5 mmol/L (21-32); CHLORIDE 104 mmol/L (98-107); CREATININE 2.3 mg/dL (0.7-1.3); GLUCOSE 90 mg/dL (74-106); POTASSIUM 3.5 mmol/L (3.5-5.1); SODIUM SERUM 138 mmol/L (136-145); TOTAL BILIRUBIN 0.6 mg/dL (0.0-1.0); UREA NITROGEN, BLOOD 34 mg/dL (7-18)
--- NOTE | 2019-07-13 06:34 | NUR ---
PT ASLEEP EASILY AROUSABLE, NOT IN CARDIAC NOR RESPIRATORY DISTRESS. PT AFIB W/ PVC'S IN THE EKG. FOR MONITORING. DR COLON. WILL ENDORSE TO AM SHIFT
--- NOTE | 2019-07-13 06:50 | NUR ---
GEGE OF LAB CALLED FOR CRITICAL RESULT TROPONIN LEVEL 0.128 TRENDING DOWN. PT HAS ONGOING HEPARIN DRIP
--- NOTE | 2019-07-13 07:20 | NUR ---
RECEIVED BEDSIDE REPORT FROM BI ARCHITECT NURSE FOR CONTINUITY OF CARE. PT AWAKE AND RESTING ON BED AT THIS TIME. PT IS AAOX4. DENIED SOB, NAUSEA, VOMITING AND DIZZINESS AT THIS TIME. RESPIRATION EVEN AND UNLABORED ON RA. NO SIGNS OF DISTRESS NOTED. IV ON LFA 24G, CLEAN AND INTACT, INFUSING HEPARIN AT 600 UNIT/ 6 ML/HR. RAC CLEAN AND DRY, SL PER MD ORDER. SKIN TEAR ON R HAND NOTED AND COVERED WITH VERSATIL, OTHERWISE SKIN CLEAN AND DRY. PT IS CONTINENT AND ABLE TO USE URANAL BY BEDSIDE. PT IS BEDREST AT THIS TIME DUE TO WEAKNESS. DISCUSSED PLAN OF CARE WITH PT AND PT VERBALIZED UNDERSTANDING. SAFETY MEASURES IN PLACE. FALL RISK PROTOCOL IN PLACE AND BED ALARM ACTIVATED. BED IN LOW POSITION AND CALL LIGHT WITHIN REACH. INSTRUCTED PT TO USE THE CALL LIGHT FOR ANY ASSISTANCE AND PT WAS AWARE.
[2019-07-13 08:00] VITALS: BP 136/79
[2019-07-13] MEDS: LEVOTHYROXINE 0.025 MG TAB PO SCH (09:35)
[2019-07-13] MEDS: FUROSEMIDE 20 MG TAB PO SCH (09:35)
[2019-07-13] MEDS: BRILINTA 90 MG PO SCH ×2 (09:36→09:37)
[2019-07-13] MEDS: LISINOPRIL 20 MG TAB PO SCH (09:36)
[2019-07-13] MEDS: ATORVASTATIN 20 MG TAB PO SCH (09:36)
--- NOTE | 2019-07-13 09:37 | NUR ---
CHECKED BP PRIOR TO MED ADMINISTRATION , BP 125/66 PULSE 96. ADMINISTRATED MEDS PER MD ORDER, MED EDUCATION PROVIDED TO PT AND PT VERBALIZED UNDERSTANDING. PT AWAKE AND WATCHING TV AT THIS TIME. DENIED PAIN, SOB, DIZZINESS. NO SIGNS OF DISTRESS NOTED. HEPARIN DRIP CONTINUE INFUSING AT 600 UNIT/ 6ML/HR. TELE MONITOR ATTACHED. SAFETY MEASURES IN PLACE. BED IN LOW POSITION AND CALL LIGHT WITHIN REACH. FALL RISK PROTOCOL IN PLACE AND BED ALARM ACTIVATED. INSTRUCTED PT TO USE THE CALL LIGHT FOR ANY ASSISTANCE AND PT WAS AWARE.
--- NOTE | 2019-07-13 10:45 | NUR ---
RECEIVED A CALL BACK FROM DR BOND. PER DR BOND THAT HE SAW THE PT TODAY AND TYPED IN A REPORT. INFORMED DR THAT NO CONSULTATION NOTE SHOWS ON EMR. PER DR BOND, CONTINUE HEPARIN DRIP UNTIL PT STARTS ELIQUS 5 MG BID AND INCREASE THE DOSE OF LIPITOR FROM 10 MG TO 40 MG. REPEATED AND CONFIRMED ABOVE INFOR WITH DR BOND. WILL INFORM DR JONES WHEN ROUNDS.
--- NOTE | 2019-07-13 11:30 | NUR ---
PT IS IN PHYSICAL SESSION WITH PHYSICAL THERAPIST AT THIS TIME. NO SIGNS OF DISTRESS NOTED. TELE MONITOR ATTACHED.
[2019-07-13 12:00] VITALS: BP 115/80
[2019-07-13] MEDS: INSULIN LISPRO SLIDING SCALE 100 UNITS/ML VIAL SUBQ PRN ×2 (12:16→17:39)
--- NOTE | 2019-07-13 12:17 | NUR ---
PT RECEIVED HIS LUNCH TRAY AND EATING LUNCH AT THIS TIME. ADMINISTERED 4 UNITS OF HUMALOG FOR BLOOD GLUCOSE 211, ENCOURAGED PT TO EAT ADQUATE INTAKE TO PROMOTE ADEQUATE GLUCOSE STABLE AND NUTRITION, PATIENT SAID OK. NO SIGNS OF DISTRESS NOTED. TELE MONITOR ATTACHED. SAFETY MEASURES IN PLACE.
--- NOTE | 2019-07-13 13:04 | NUR ---
CLEANSED SKIN TEAR WITH NS AND APPLIED VERSTEL COVER SKIN TEAR. PT TOLERATED WELL. PT AWAKE AND RESTING ON BED AT THIS TIME. NO SIGNS OF DISTRESS NOTED. TELE MONITOR ATTACHED. SAFETY MEASURES IN PLACE. BED IN LOW POSITION AND CALL LIGHT WITHIN REACH. FALL RISK PROTOCOL IN PLACE AND BED ALARM ACTIVATED.
--- NOTE | 2019-07-13 13:29 | NUR ---
RECEIVED APTT 36, ADJUSTED THE INFUSING RATE PER PROTOCOL TO 700 UNITS /7ML/HR AND ADMINISTERED BOLUS OF 1,900 UNITS/ 0.38 ML/HR. PT IS RESTING ON BED AT THIS TIME. RESPIRATION EVEN AND UNLABORED ON RA. NO SIGNS OF DISTRESS NOTED. TELE MONITOR ATTACHED. SAFETY MEASURES IN PLACE. FALL RISK PROTOCOL IN PLACE AND BED ALARM ACTIVATED. WILL ORDER THE NEXT PTT DRAW AT 1930.
[2019-07-13] MEDS ORDERED: DOCUSATE SODIUM 100 MG GELCAP PO SCH (14:31)
--- NOTE | 2019-07-13 14:35 | NUR ---
ADMINISTERED COLACE PO, MED ED PROVIDED AND PT TOLERATED WELL. PT IS AWAKE AND WATCHING TV ON BED AT THIS TIME. DENIED PAIN, SOB, NAUSEA AND DIZZINESS. NO SIGNS OF DISTRESS NOTED. TELE MONITOR ATTACHED. SAFETY MEASURES IN PLACE. BED IN LOW POSITION AND CALL LIGHT WITHIN REACH. INSTRUCTED PT TO USE THE CALL LIGHT FOR ANY ASSISTANCE AND PT WAS AWARE.
--- NOTE | 2019-07-13 15:19 | NUR ---
PT AWAKE AND LOOKING AT HIS PHONE AT THIS TIME. NO SIGNS OF DISTRESS NOTED. TELE MONITOR ATTACHED. SAFETY MEASURES IN PLACE. BED IN LOW POSITION. CALL LIGHT WITHIN REACH. FALL RISK PROTOCOL IN PLACE AND BED ALARM ACTIVATED.
[2019-07-13] MEDS ORDERED: [UNRECOGNIZED DRUG - OTHER] PO (15:30)
[2019-07-13] MEDS ORDERED: LANTUS SUBQ (15:30)
--- NOTE | 2019-07-13 15:35 | NUR ---
DC HEPARIN DRIP PER MD ORDER.
[2019-07-13] MEDS ORDERED: CARV3.12 PO (15:36)
[2019-07-13 16:00] VITALS: BP 121/68
--- NOTE | 2019-07-13 16:05 | NUR ---
CALLED PT'S SON ORALIA AND INFORMED THAT PT IS MEDICALLY CLEAR TO DC FOR HOME HEALTH PT AND HOME SAFETY EVALUATION. EXPLAINED TO ORALIA THAT PT HAS BEEN EVALUATED BY DR JONES THAT HE IS MEDICALLY STABLE WITH BLOOD GLUCOSE AND BLOOD PRESSURE. ORALIA WAS AWARE. PER ORALIA, HE WILL CALL PT AND TALK WITH PT THEN GIVE US A CALL BACK TO LET US KNOW THE CHEMICAL PROCESS ANALYST TIME.
--- NOTE | 2019-07-13 16:15 | NUR ---
Crutching Contractor Note: Per Leslie from [facility] , patient was not receiving home health or hospice services at their facility. She is aware patient will be discharged today. She told me they do not provide transportation for patients from hospital back to their facility. I spoke with patient's son Daniel this morning. He stated patient at times suffers from depression due to multiple medical problems. He reported he would like patient to be transferred to a snf for physical therapy. I explained to him one of our patient case coordinator will contact patients health insurance plan to discuss snf placement. Per Supervisor Tumblers Iliana, health insurance plan will not authorize snf placement for physical therapy instead they are approving home health services for physical therapy. I called Daniel to notified him health insurance denied snf request and approved for home health services. He stated he is considering placing patient at another assisted living and thinks patient would be open to hearing information on hospice services. I explained to him there is a program called [facility] that provide FORMULATION TECHNICIAN and/or SW home visits to patients who are discharged from hospital. Program helps with understanding DC instructions and community resources at no cost. I also informed him they also offer hospice services. Daniel stated he would like patient to be referred to program. I faxed referral to [facility], fax number . Per Daniel, he is in agreement with patient being transferred back to [facility] today. He cannot pay transportation cost. Per Patrol Conductor KYLER Mosley Transportation can be contacted, patients KATARINA Nuñez made aware.
--- NOTE | 2019-07-13 17:39 | NUR ---
PT RECEIVED HIS LUNCH TRAY AND EATING LUNCH AT THIS TIME. ADMINISTERED 2 UNITS OF HUMALOG FOR BLOOD GLUCOSE 184, MED ED PROVIDED TO PT AND PT SAID OK. NO SIGNS OF DISTRESS NOTED. TELE MONITOR ATTACHED. INFORMED PT THAT [facility] IS THE TRANSPORTATION THAT MOTOR EQUIPMENT CAPTAIN PT AROUND 1830, PT WAS AWARE. SAFETY MEASURES IN PLACE. FALL RISK PROTOCOL IN PLACE AND BED ALARM ACTIVATED.
--- NOTE | 2019-07-13 18:00 | NUR ---
DOUGH SCALER AND MIXER IS ASSISTING PT TO CHANGE INTO HIS OWN CLOTHES. NO SIGNS OF DISTRESS NOTED. SAFETY MEASURES IN PLACE.
--- NOTE | 2019-07-13 18:13 | NUR ---
DISCHARGE INSTRUCTION PROVIDED TO PT AT BEDSIDE. EDUCATED PT ON FOLLOW UP WITH MD, SEEK MEDICAL HELP IN THE CASE OF MEDICAL EMERGENCY, DISEASE MANAGEMENT, MEDICATION REGIMEN, SIDE EFFECTS, AND DIET. ANSWERED ALL PT'S QUESTIONS, AND PT VERBALIZED UNDERSTANDING. DC IV AND CANNULA INTACT, NO BLEEDING AT IV SITES. REMOVED ALL ARM BANDS. REMOVED TELE MONITOR AND RETURN TO STRIP CATCHER. PT IS UP TO DATE WITH VACCINATION. PT AWARE THAT PRESCRIPTION IS INT HE DISCHARGE PACKAGE. RETURNED PT'S HOME MED BRRAJINDERTA. PT CHANGED INTO HER OWN CLOTHES AND CHECKED ALL CABINETS. PT TOOK ALL HIS BELONGINGS HOME. PT IS GOING TO DC HOME WITH [facility] AT THIS TIME IN STABLE CONDITION.
[2019-07-14] MEDS ORDERED: DOCUSATE SODIUM 100 MG GELCAP PO SCH ×2 (09:00)
== END 2019-07-13 18:13 | disposition hospice, home (50) | DRG 917 ==
LOC: MED 13:22 → MTU 16:44
PROVIDERS: ADMIT Internal Medicine Pulmonary Disease; ATTEND Internal Medicine Pulmonary Disease
DX: T38.3X1A Poisoning by insulin and oral hypoglycemic [antidiabetic] drugs, accidental (unintentional), initial encounter (principal); I21.4 Non-ST elevation (NSTEMI) myocardial infarction; I69.351 Hemiplegia and hemiparesis following cerebral infarction affecting right dominant side; I50.20 Unspecified systolic (congestive) heart failure; I13.0 Hypertensive heart and chronic kidney disease with heart failure and stage 1 through stage 4 chronic kidney disease, or unspecified chronic kidney disease; N18.4 Chronic kidney disease, stage 4 (severe); E11.649 Type 2 diabetes mellitus with hypoglycemia without coma; E78.5 Hyperlipidemia, unspecified; E03.9 Hypothyroidism, unspecified; I48.91 Unspecified atrial fibrillation; I25.10 Atherosclerotic heart disease of native coronary artery without angina pectoris; E11.22 Type 2 diabetes mellitus with diabetic chronic kidney disease; Z95.5 Presence of coronary angioplasty implant and graft; Z91.14 Patient's other noncompliance with medication regimen; Z79.4 Long term (current) use of insulin; Y92.89 Other specified places as the place of occurrence of the external cause; Z82.49 Family history of ischemic heart disease and other diseases of the circulatory system; Z88.6 Allergy status to analgesic agent; Z88.2 Allergy status to sulfonamides; Z79.84 Long term (current) use of oral hypoglycemic drugs
CPT/HCPCS: 36415; 51702; 71045; 76770; 80048; 80053; 82150; 82948; 83036; 83690; 83735; 84100; 84484; 85025; 85610; 85730; 87081; 87804; 93005; 97110; 99285; J1644; J1815; J2270; J7030; Q0092